=== PATIENT | female | born 1995 | race Asian ===

== ENCOUNTER 2020-04-22 13:27 | Emergency (ER) | payer BC, MEDICAID ==
[2020-04-22] MEDS ORDERED: Lidocaine 1% 30 ML SDV INJECT ONE (13:41)
[2020-04-22] MEDS ORDERED: Bacitracin Oint 1 GM U/D Packet TOP ONE (13:59)
--- NOTE | 2020-04-22 14:10 | EDM.PDOC ---
Scribed by Leia Betts 04/22/20 1410 for Kristy Kasper MD ED HPI GENERAL MEDICAL PROBLEM - General Chief Complaint: General Stated Complaint: HOOK IN HEAD Time Seen by Provider: 04/22/20 13:50 Source of Information: Reports: Patient, RN, RN Notes Reviewed History Limitations: Reports: No Limitations - History of Present Illness INITIAL COMMENTS - FREE TEXT/NARRATIVE: Patient presents to ED by POV with the complaint of a fishhook in her head. The hook is in the right side of the head. This happened about 30 minutes ago. Onset: Today Duration: Constant Location: Reports: Head Quality: Reports: Ache Severity: Moderate Improves with: Reports: None Worsens with: Reports: None Associated Symptoms: Reports: No Other Symptoms - Related Data Allergies Allergy/AdvReac Type Severity Reaction Status Date / Time No Known Allergies Allergy Verified 04/22/20 13:43 Home Meds: Home Meds Folic Acid 16 mg PO DAILY 04/22/20 [History] Past Medical History HEENT History: Reports: None Cardiovascular History: Reports: None Respiratory History: Reports: None Gastrointestinal History: Reports: None Genitourinary History: Reports: None [employer]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 Musculoskeletal History: Reports: None Neurological History: Reports: None Psychiatric History: Reports: None Endocrine/Metabolic History: Reports: None Hematologic History: Reports: None Immunologic History: Reports: None Oncologic (Cancer) History: Reports: None Dermatologic History: Reports: None - Infectious Disease History Infectious Disease History: Reports: None Social & Family History - Tobacco Use Smoking Status *Q: Never Smoker Second Hand Smoke Exposure: No - Caffeine Use Caffeine Use: Reports: Soda - Recreational Drug Use Recreational Drug Use: No ED ROS GENERAL - Review of Systems Review Of Systems: Comprehensive ROS is negative, except as noted in HPI. ED EXAM, GENERAL - Physical Exam Exam: See Below Exam Limited By: No Limitations General Appearance: Alert, WD/WN, No Apparent Distress Head: Other (Right zoroastrian single hook. ) Respiratory/Chest: No Respiratory Distress, Lungs Clear, Normal Breath Sounds, No Accessory Muscle Use, Chest Non-Tender Cardiovascular: Normal Peripheral Pulses, Regular Rate, Rhythm, No Edema, No Gallop, No JVD, No Murmur, No Rub Extremities: Normal Inspection Neurological: Alert, Oriented Psychiatric: Normal Affect Skin Exam: Warm, Dry ED GENERAL MEDICAL PROCEDURES - Additional/Other Procedure(s) Other (Free Text) Procedure(s): The right zoroastrian area was cleansed with alcohol and numbed up using 1.5cc Lidocaine without epi. Area was then cleaned. Mariana was popped through using pliers, cut free and pushed through. Mariana was then clipped off and the shaft was backed out. No residual foreign body. No complications. Course - Vital Signs Last Recorded V/S: Last Vital Signs Temp 97.8 F 04/22/20 13:40 Pulse 79 04/22/20 13:40 Resp 16 04/22/20 13:40 BP 116/74 04/22/20 13:40 Pulse Ox 100 04/22/20 13:40 - Orders/Labs/Meds Meds: Medications Discontinued Medications Generic Name Dose Route Start Last Admin Trade Name Martell PRN Reason Stop Dose Admin Bacitracin 1 dose 04/22/20 13:59 04/22/20 14:03 Bacitracin Oint 1 Gm TOP 04/22/20 14:00 1 dose ONETIME ONE Administration Lidocaine HCl 30 ml 04/22/20 13:41 04/22/20 13:55 Xylocaine-Mpf 1% INJECT 04/22/20 13:42 30 ml ONETIME ONE Administration Departure - Departure Time of Disposition: 14:08 Disposition: Home, Self-Care 01 Condition: Good Clinical Impression: Fish hook injury of scalp Qualifiers: Encounter type: initial encounter Qualified Code(s): S09.90XA - Unspecified injury of head, initial encounter - Discharge Information *PRESCRIPTION DRUG MONITORING PROGRAM REVIEWED*: Not Applicable *COPY OF PRESCRIPTION DRUG MONITORING REPORT IN PATIENT MANUEL: Not Applicable Instructions: Puncture Wound, [id number] Forms: ED Department Discharge Additional Instructions: Follow up in clinic if any signs of infection develop. Sepsis Event Note (ED) - Evaluation Sepsis Screening Result: No Definite Risk - Focused Exam Vital Signs: Vital Signs Temp Pulse Resp BP Pulse Ox 04/22/20 13:40 97.8 F 79 16 116/74 100 I have read and agree with the documentation that has been completed regarding this visit. By signing this record, I attest that the documentation was completed in my physical presence and is an accurate record of the encounter.
== END 2020-04-22 14:15 | disposition home or self-care (01) ==
LOC: DL.ED 13:27
DX: S00.05XA Superficial foreign body of scalp, initial encounter (principal); W54.8XXA Other contact with dog, initial encounter
CPT/HCPCS: 99283; J2001